=== PATIENT | female | born 1945 | race Caucasian/White ===

== ENCOUNTER 2021-08-17 12:07 | Outpatient (CLI) | payer MEDICARE | END 2021-08-17 12:08 | disposition home or self-care (01) | LOC: CSHULT 12:07 | PROVIDERS: ATTEND Family Medicine | DX: M79.89 Other specified soft tissue disorders (principal); R06.09 Other forms of dyspnea; I51.89 Other ill-defined heart diseases | CPT/HCPCS: 93306 ==